=== PATIENT | female | born 1980 | race African-American/Black ===

== ENCOUNTER 2016-08-18 08:22 | Emergency (ER) | payer OTHER ==
[~2016-08-18] VITALS: Ht 157.5 cm; Wt 104.3 kg
[~2016-08-18 08:22] MED LIST: CIPRO500 MG PO; ENALAPRIL2.5 MG PO; HYDROCHLORTHIAZIDE PO; LASIX20 M1 PO; ZESTRIL10 MG PO; [UNRECOGNIZED DRUG - OTHER] PO
[2016-08-18 08:24] VITALS: BP 160/99
--- NOTE | 2016-08-18 08:32 | NUR ---
PT PRESENTS TO ER W/C/O CHEST PAIN SINCE 0500. HX HTN, HYPERLIPIDEMIA, CARDIOMYOPATHY. DENIES N/V/D; SKIN IS PINK/WARM/DRY; AAOX4 WITH EVEN AND STEADY GAIT; LUNGS CLEAR BL; HR EVEN AND REGULAR; PT DENIES ANY FEVER, SOB, OR COUGH AT THIS TIME; PATIENT STATES PAIN OF 10/10 AT THIS TIME; VSS; PATIENT POSITIONED FOR COMFORT; HOB ELEVATED; BEDRAILS UP X2; BED DOWN. ER MD MADE AWARE OF PT STATUS.
--- NOTE | 2016-08-18 08:55 | NUR ---
DR PRATHER ASSESSING THE PT AT BEDSIDE
[2016-08-18] MEDS ORDERED: NACL 0.9% 1,000 ML IV ONE (09:00)
[2016-08-18] MEDS ORDERED: ASPIRIN 81 MG TAB.CHEW PO ONE (09:00)
[2016-08-18] MEDS ORDERED: HYDROmorphone 1 MG/ML AMP IVP ONE ×2 (09:00→10:15)
--- NOTE | 2016-08-18 09:40 | NUR ---
[employer] AT BEDSIDE
--- NOTE | 2016-08-18 11:06 | NUR ---
2ND DILAUDID GIVEN AT 1020, PT RESTING/TAKING A NAP COMFORTABLY ON BED, VSS, NO DISTRESS OR C/O PAIN AT THIS TIME
--- NOTE | 2016-08-18 11:36 | NUR ---
AAO PT NO C/O PAIN AT THIS TIME, JUST LIGHTHEADED PER PT, GIVEN CUP OF WATER PER PT REQUEST, VSS, WILL CONTINUE TO MONITOR
--- NOTE | 2016-08-18 11:47 | NUR ---
DR PRATHER AT BEDSIDE UPDATING AAO PT FOR DISCHARGE INSTRUCTIONS
[2016-08-18 12:02] VITALS: BP 111/75
== END 2016-08-18 12:02 | disposition home or self-care (01) ==
LOC: MED 08:22
DX: R07.89 Other chest pain (principal); I10 Essential (primary) hypertension; I42.9 Cardiomyopathy, unspecified; E78.5 Hyperlipidemia, unspecified; Z88.0 Allergy status to penicillin; Z88.5 Allergy status to narcotic agent
CPT/HCPCS: 36415; 71010; 80053; 84484; 85025; 85610; 85730; 93005; 96361; 96374; 96376; 99285; J1170; J7030; Q0092

== ENCOUNTER 2018-07-12 21:09 | Emergency (ER) | payer OTHER ==
[~2018-07-12] VITALS: Ht 157.5 cm; Wt 93.0 kg
[~2018-07-12 21:09] MED LIST changes: +CIPR500T4 PO; -CIPRO500 MG PO; -ENALAPRIL2.5 MG PO; -HYDROCHLORTHIAZIDE PO; -LASIX20 M1 PO; +LISI10TA11 PO; -ZESTRIL10 MG PO; -[UNRECOGNIZED DRUG - OTHER] PO
[2018-07-12 21:17] VITALS: BP 157/117
--- NOTE | 2018-07-12 21:22 | NUR ---
PT TAKEN TO BED 2 Addendum: 07/12/18 at 2141 by ROSIE PT TAKEN TO BED 3
--- NOTE | 2018-07-12 21:35 | NUR ---
PATIENT PRESENTS TO ED WITH VAGINAL BLEEDING X9 DAYS. PT STATES LMP: 07/03/18 AND HAS NOT STOPPED BLEEDING, IS UNUSUAL FOR HER CYCLE AND SYCOPAL EPIDSODE TODAY WITNESSED BY HER DAUGHTER, LASTED LESS THAN 1 MIN. DENIES N/V/D; SKIN IS PINK/WARM/DRY; AAOX4 WITH EVEN AND STEADY GAIT; LUNGS CLEAR BL; HR EVEN AND REGULAR; PT DENIES ANY FEVER, CP, SOB, OR COUGH AT THIS TIME; PATIENT STATES PAIN OF 9/10 AT THIS TIME; VSS; PATIENT POSITIONED FOR COMFORT; HOB ELEVATED; BEDRAILS UP X2; BED DOWN. ER MD MADE AWARE OF PT STATUS. PMH: HTN, SCIATICA RX: NORCO
--- NOTE | 2018-07-12 21:44 | NUR ---
Dr. Eddy evaluating patient at bedside.
[2018-07-12] MEDS ORDERED: MORPHINE SULFATE 4 MG/ML SYR IM ONE (21:55)
[2018-07-12 22:09] LABS: APPEARANCE,URINE CLEAR (CLEAR); BILIRUBIN,URINE NEGATIVE (NEGATIVE); BLOOD, URINE 3+ (NEGATIVE); COLOR,URINE YELLOW (YELLOW); LEUKOCYTE ESTERASE ,URINE NEGATIVE (NEGATIVE); NITRITE, URINE NEGATIVE (NEGATIVE); UGLUCOSE NEGATIVE (NEGATIVE)
--- NOTE | 2018-07-12 22:13 | NUR ---
LAB AT BEDSIDE.
--- NOTE | 2018-07-12 22:22 | NUR ---
US AT BEDSIDE.
--- NOTE | 2018-07-12 22:22 | NUR ---
Ultrasound at bedside.
[2018-07-12 22:24] LABS: RBC,URINE 0-5 (RARE) /HPF (0-5); WBC,URINE 0-5 (RARE) /HPF (0-5)
[2018-07-12 22:28] LABS: BASOPHILS % (AUTO) 0.6 % (0.0-2.0); EOSINOPHILS % (AUTO) 0.5 % (0.0-4.0); HEMATOCRIT 35.1 % (36-48); HEMOGLOBIN 11.4 g/dL (12.0-16.0); LYMPHOCYTES # (AUTO) 2.4 K/uL (2.5-16.5); LYMPHOCYTES % (AUTO) 37.1 % (20.5-51.1); MEAN CORPUSCULAR HEMOGLOBIN 29 pg (27-31); MEAN CORPUSCULAR HGB CONC 32 g/dL (33-37); MEAN CORPUSCULAR VOLUME 89.2 fL (80-94); MONOCYTES # (AUTO) 0.4 K/uL (0.8-1.0); NEUTROPHILS # (AUTO) 3.6 K/uL (1.8-7.7); NEUTROPHILS % (AUTO) 55.8 % (42.2-75.2); PLATELET COUNT (AUTO) 312 K/uL (140-450); RED BLOOD CELL COUNT(AUTO) 3.93 MIL/uL (4.20-5.40); RED CELL DISTRIBUTION WIDTH 14.2 % (11.6-13.7); WHITE BLOOD COUNT (AUTO) 6.4 K/uL (4.8-10.8)
[2018-07-12 22:53] LABS: PROTHROMBIN TIME 9.3 secs (10.8-13.4)
[2018-07-12 23:11] LABS: ANION GAP 9.5 (8-16); CARBON DIOXIDE 28.1 mmol/L (21-32); POTASSIUM 3.6 mmol/L (3.5-5.1)
[2018-07-12 23:26] LABS: ALBUMIN 3.3 g/dL (3.4-5.0); FREE T4 (FREE THYROXINE) 0.95 ng/dL (0.76-1.46); THYROID STIMULATING HORMONE 1.22 uIU/mL (0.34-3.74); TOTAL BILIRUBIN 0.2 mg/dL (0.0-1.0)
--- NOTE | 2018-07-13 01:30 | NUR ---
Patient discharged with v/s stable. Written and verbal after care instructions given and explained. Patient alert, oriented and verbalized understanding of instructions. Ambulatory with steady gait. All questions addressed prior to discharge. ID band removed. Patient advised to follow up with PMD. Rx of Naprosyn, and [place] given. Patient educated on indication of medication including possible reaction and side effects. Opportunity to ask questions provided and answered.
[2018-07-13 01:58] VITALS: BP 108/84
== END 2018-07-13 01:30 | disposition home or self-care (01) ==
LOC: MED 21:09
DX: N83.201 Unspecified ovarian cyst, right side (principal); I10 Essential (primary) hypertension; Z79.899 Other long term (current) drug therapy; Z88.1 Allergy status to other antibiotic agents; Z88.5 Allergy status to narcotic agent; Z88.8 Allergy status to other drugs, medicaments and biological substances
CPT/HCPCS: 36415; 76830; 80053; 81001; 81025; 84439; 84443; 85025; 85610; 85730; 93005; 96372; 99284; J2270; Q0092

== ENCOUNTER 2018-07-21 19:02 | Emergency (ER) | payer OTHER ==
[~2018-07-21] VITALS: Ht 157.5 cm; Wt 98.9 kg
[2018-07-21 19:13] VITALS: BP 146/87
--- NOTE | 2018-07-21 19:43 | NUR ---
PT RETURN FROM [facility] TO [facility]
--- NOTE | 2018-07-21 20:22 | NUR ---
PT TAKEN TO BED 1
--- NOTE | 2018-07-21 20:44 | NUR ---
PT TO ED WITH C/O CHEST PAIN RADIATING TO LEFT BREAST. PT DENIES SOB. PT DENIES INJURY OR TRAUMA. CAP REFILL LESS THAN 3 SECS. NSR ON MONITOR. NO EDEMA OR SWELLING NOTED TO EXTREMITIES. PT ALSO REPORTING NAUSEA. BOWEL SOUNDS PRESENT. ABD IS SOFT NON TEDNER. PT PLACED INTO BED, ALL MONITORS PRESENT. PENDING MD ROCHA.
[2018-07-21] MEDS ORDERED: NACL 0.9% 1,000 ML IV ONE (20:59)
[2018-07-21] MEDS ORDERED: METOCLOPRAMIDE 10 MG/2 ML INJ VIAL IVP ONE (21:00)
[2018-07-21] MEDS ORDERED: diphenhydrAMINE 50 MG/ML VIAL IVP ONE (21:00)
--- NOTE | 2018-07-21 21:31 | NUR ---
PT SLEEPING AT THIS TIME. VSS. ON CONTINUOUS MONITORING. WILL CONTINUE TO MONITOR.
--- NOTE | 2018-07-21 23:04 | NUR ---
Patient discharged with v/s stable. Written and verbal after care instructions given and explained. Patient alert, oriented and verbalized understanding of instructions. Ambulatory with steady gait. All questions addressed prior to discharge. ID band removed. Patient advised to follow up with PMD. Rx of MOTRIN, ZOFRAN given. Patient educated on indication of medication including possible reaction and side effects. Opportunity to ask questions provided and answered.
[2018-07-21 23:05] VITALS: BP 138/91
== END 2018-07-21 23:04 | disposition home or self-care (01) ==
LOC: MED 19:02
DX: R07.89 Other chest pain (principal); R51 Headache; I10 Essential (primary) hypertension; Z90.49 Acquired absence of other specified parts of digestive tract; Z79.899 Other long term (current) drug therapy; Z88.6 Allergy status to analgesic agent; Z88.1 Allergy status to other antibiotic agents; Z88.5 Allergy status to narcotic agent
CPT/HCPCS: 71046; 81002; 93005; 96374; 96375; 99283; J1200; J2765; J7030

== ENCOUNTER 2018-08-15 17:41 | Emergency (ER) | payer OTHER ==
[~2018-08-15] VITALS: Ht 157.5 cm; Wt 100.5 kg
[2018-08-15 17:45] VITALS: BP 139/37
--- NOTE | 2018-08-15 18:44 | NUR ---
PATIENT AMBULATED TO BED 11
--- NOTE | 2018-08-15 18:45 | NUR ---
BIB SON. AAOX 4. C/O NECK PAIN, HEADACHE X 2 DAYS PT STATES 10/10 SHARP PAIN. MINIMAL MOVEMENT TO NECK. UNABLE TO LIFT UP LEFT ARM ABOVE SHOULDERS. EQUAL BILATERAL STRENGTH TO UPPER AND LOWER EXTREMITIES. PT HAS A MEDICAL HISTORY OF SCIATICA. PT TOOK FLEXERIL FOR MUSCLE RELAXANT. PT DENIES DIZZINESS. NO N/V/D. HOB UP. BED SIDE RAILS UP X1. ON LOW BED POSITION, LOCKED. ER MADE AWARE OF PT STATUS.
--- NOTE | 2018-08-15 19:11 | NUR ---
Pt report given to ULISES PIMENTEL AND ULISES NAJERA. Transfer of care at this time.
--- NOTE | 2018-08-15 19:13 | NUR ---
ASSUMED CARE OF PT FROM ULISES KERR
[2018-08-15 21:06] VITALS: BP 139/37
--- NOTE | 2018-08-15 21:08 | NUR ---
Patient discharged with v/s stable. Written and verbal after care instructions given and explained. Patient alert, oriented and verbalized understanding of instructions. Ambulatory with steady gait. All questions addressed prior to discharge. ID band removed. Patient advised to follow up with PMD. Rx of FLEXERIL,AND TRAMADOL given. Patient educated on indication of medication including possible reaction and side effects. Opportunity to ask questions provided and answered.
== END 2018-08-15 21:08 | disposition home or self-care (01) ==
LOC: MED 17:41
DX: M43.6 Torticollis (principal); I10 Essential (primary) hypertension; Z90.49 Acquired absence of other specified parts of digestive tract; Z79.899 Other long term (current) drug therapy; Z88.1 Allergy status to other antibiotic agents; Z88.5 Allergy status to narcotic agent
CPT/HCPCS: 72040; 99283

== ENCOUNTER 2018-09-29 14:34 | Emergency (ER) | payer OTHER ==
[~2018-09-29] VITALS: Ht 157.5 cm; Wt 99.8 kg
[2018-09-29 14:47] VITALS: BP 135/64
--- NOTE | 2018-09-29 15:00 | NUR ---
C/O LEFT TOE PAIN. 11/26 PAIN. PT REPORTS PREVIOUS INGROWN TOE NAIL THAT POSSIBLY GOT INFECTED. PATIENT POSITIONED FOR COMFORT; HOB ELEVATED; BEDRAILS UP X1; BED DOWN. ER MD MADE AWARE OF PT STATUS.
[2018-09-29 15:20] VITALS: BP 120/60
== END 2018-09-29 15:09 | disposition home or self-care (01) ==
LOC: MED 14:34
DX: L60.0 Ingrowing nail (principal); L08.9 Local infection of the skin and subcutaneous tissue, unspecified; I10 Essential (primary) hypertension; Z88.1 Allergy status to other antibiotic agents; Z88.5 Allergy status to narcotic agent; Z88.8 Allergy status to other drugs, medicaments and biological substances; Z79.899 Other long term (current) drug therapy
CPT/HCPCS: 99283

== ENCOUNTER 2019-04-13 02:52 | Emergency (ER) | payer OTHER ==
[~2019-04-13] VITALS: Ht 154.9 cm; Wt 104.3 kg
[2019-04-13 03:07] VITALS: BP 129/48
--- NOTE | 2019-04-13 03:30 | NUR ---
PT PRESENTS TO THE ED WITH C/O RIGHT KNEE PAIN X2DAYS. NON-PITTING EDEMA NOTED TO THE RIGHT LEG AND FOOT. PATIENT SENSITIVE TO TOUCH. SKIN IS INTACT WITH SCATTERED SCABS. PT DENIES TRAUMA TO THE THE LEG.
--- NOTE | 2019-04-13 03:34 | NUR ---
PT BEING EVALUATED BY DR FINNEGAN
[2019-04-13] MEDS ORDERED: MORPHINE SULFATE 4 MG/ML SYR IVP ONE (03:45)
[2019-04-13] MEDS ORDERED: LIDOCAINE MPF 1% 10 MG/ML VIAL INJ ONE (03:45)
[2019-04-13] MEDS ORDERED: cefTRIAXone 1,000 MG VIAL ONE (03:49)
[2019-04-13] MEDS ORDERED: ONDANSETRON 4 MG/2 ML VIAL ONE (04:13)
[2019-04-13] MEDS ORDERED: ONDANSETRON 4 MG/2 ML VIAL IVP ONE (04:15)
[2019-04-13] MEDS ORDERED: BACITRACIN OINT 500 UNITS/GM PKT TP ONE (04:30)
--- NOTE | 2019-04-13 04:42 | NUR ---
PT WOUND COVERED WITH NON ADHERENT DRESSING AND WRAPPED WITH ROLLER GAUZE AFTER BACITRACIN APPLIED.
[2019-04-13 05:18] VITALS: BP 127/91
--- NOTE | 2019-04-13 05:18 | NUR ---
PT DISCHARGED BY DR FINNEGAN
== END 2019-04-13 05:18 | disposition home or self-care (01) ==
LOC: MED 02:52
DX: L60.0 Ingrowing nail (principal); L03.115 Cellulitis of right lower limb; I10 Essential (primary) hypertension; Z79.899 Other long term (current) drug therapy; Z88.1 Allergy status to other antibiotic agents; Z88.5 Allergy status to narcotic agent; Z88.8 Allergy status to other drugs, medicaments and biological substances
CPT/HCPCS: 11730; 93971; 96365; 96375; 99284; J0696; J2001; J2270; J2405; Q0092

== ENCOUNTER 2019-05-03 23:19 | Emergency (ER) | payer OTHER ==
[~2019-05-03] VITALS: Ht 157.5 cm; Wt 104.3 kg
[2019-05-03 23:43] VITALS: BP 147/90
--- NOTE | 2019-05-03 23:45 | NUR ---
TO LOBBY A/W BED AMBULATORY
--- NOTE | 2019-05-03 23:58 | NUR ---
PT TAKEN TO BED 2
--- NOTE | 2019-05-04 00:10 | NUR ---
ASSESSMENT COMPLETED AT THIS TIME. PATIENT SITTING UP IN BED, BED IN LOW LOCKED POSTION, SIDE RAIL UP X1. NO NEEDS STATED AT THIS TIME.
[2019-05-04 02:00] VITALS: BP 141/87
--- NOTE | 2019-05-04 02:00 | NUR ---
PT DISCHARGED WITH PAPERWORK. EDUCATED PT REGARDING MEDICATIONS AND S/E. EDUCATED PT REGARDING D/C DIAGNOSIS AND INSTRUCTIONS. TOLD PT TO FOLLOW UP WITH PCP AND WHEN TO RETURN TO ED. PT STABLE CONDITION. ALL QUESTIONS ANSWERED.
== END 2019-05-04 02:00 | disposition home or self-care (01) ==
LOC: MED 23:19
DX: J20.9 Acute bronchitis, unspecified (principal); I10 Essential (primary) hypertension; Z98.890 Other specified postprocedural states; Z79.2 Long term (current) use of antibiotics; Z79.899 Other long term (current) drug therapy; Z88.6 Allergy status to analgesic agent; Z88.0 Allergy status to penicillin; Z88.5 Allergy status to narcotic agent
CPT/HCPCS: 71045; 87081; 99284; Q0092

== ENCOUNTER 2019-06-07 17:34 | Emergency (ER) | payer OTHER ==
[~2019-06-07] VITALS: Ht 157.5 cm; Wt 104.3 kg
--- NOTE | 2019-06-07 17:44 | NUR ---
PT IN WHEELCHAIR TO ER BED 06
[2019-06-07 17:45] VITALS: BP 133/96
--- NOTE | 2019-06-07 18:02 | NUR ---
39 Y/O F C/O COUGH, CONGESTION, CHEST TIGHTNESS X 2 DAYS WITH PAIN 6/10 WHEN COUGHING. PT HAS NAUSEA, NO FEVER. PT LUNG SOUNDS CLEAR THROUGHOUT, OXYGEN LEVEL 100%. PT ON MONITOR, VSS, PT POSITIONED HIGH FOWLERS, AT BEDSIDE.
[2019-06-07] MEDS ORDERED: ALBUTEROL 0.083% 2.5 MG/3 ML NEBU INH ONE (18:15)
[2019-06-07 18:41] LABS: BASOPHILS # (AUTO) 0.1 K/uL (0.00-0.22); EOSINOPHILS # (AUTO) 0.1 K/uL (0-0.4); EOSINOPHILS % (AUTO) 1.6 % (0.0-4.0); HEMATOCRIT 33.4 % (36-48); HEMOGLOBIN 10.8 g/dL (12.0-16.0); LYMPHOCYTES # (AUTO) 1.9 K/uL (2.5-16.5); LYMPHOCYTES % (AUTO) 33.2 % (20.5-51.1); MEAN CORPUSCULAR HEMOGLOBIN 28 pg (27-31); MEAN CORPUSCULAR HGB CONC 32 g/dL (33-37); MEAN CORPUSCULAR VOLUME 85.2 fL (80-94); MONOCYTES # (AUTO) 0.4 K/uL (0.8-1.0); MONOCYTES % (AUTO) 7.6 % (1.7-9.3); NEUTROPHILS # (AUTO) 3.3 K/uL (1.8-7.7); NEUTROPHILS % (AUTO) 56.6 % (42.2-75.2); PLATELET COUNT (AUTO) 350 K/uL (140-450); RED BLOOD CELL COUNT(AUTO) 3.92 MIL/uL (4.20-5.40); WHITE BLOOD COUNT (AUTO) 5.8 K/uL (4.8-10.8)
[2019-06-07 18:58] LABS: ALBUMIN 3.2 g/dL (3.4-5.0); ANION GAP 11.8 (8-16); CARBON DIOXIDE 28.5 mmol/L (21-32); CREATININE 0.7 mg/dL (0.6-1.3); POTASSIUM 3.3 mmol/L (3.5-5.1); TOTAL BILIRUBIN 0.2 mg/dL (0.0-1.0)
--- NOTE | 2019-06-07 18:59 | NUR ---
PT STATES SHE FEELS BETTER AFTER BREATHING TREATMENT. AT BEDSIDE.
[2019-06-07 19:01] LABS: PROTHROMBIN TIME 9.3 secs (10.8-13.4)
[2019-06-07 19:02] VITALS: BP 119/80
--- NOTE | 2019-06-07 19:10 | NUR ---
REPORT GIVEN TO ULISES CHANG FOR CHANGE OF SHIFT.
--- NOTE | 2019-06-07 19:11 | NUR ---
REPORT RECEIVED FROM ULISES FRAZIER. ASSUMED CARE AT THIS TIME
--- NOTE | 2019-06-07 20:21 | NUR ---
Patient discharged with v/s stable. Written and verbal after care instructions given and explained. Patient verbalized understanding. Wheel Chair Assisted with by SON. All questions addressed prior to discharge. Advised to follow up with PMD.
== END 2019-06-07 20:21 | disposition home or self-care (01) ==
LOC: MED 17:34
DX: R60.0 Localized edema (principal); I10 Essential (primary) hypertension; R07.89 Other chest pain; R06.02 Shortness of breath; Z79.899 Other long term (current) drug therapy; Z88.1 Allergy status to other antibiotic agents; Z88.5 Allergy status to narcotic agent
CPT/HCPCS: 36415; 71045; 80053; 83880; 84484; 85025; 85610; 85730; 93005; 94640; 99284; J7613; Q0092

== ENCOUNTER 2020-08-25 07:17 | Emergency (ER) | payer OTHER ==
[~2020-08-25] VITALS: Ht 157.5 cm; Wt 93.0 kg
[~2020-08-25 07:17] MED LIST changes: +LISI-486 PO; -LISI10TA11 PO
[2020-08-25 07:22] VITALS: BP 142/71
[2020-08-25] MEDS ORDERED: MORPHINE SULFATE 4 MG/ML SYR IVP ONE (07:45)
[2020-08-25] MEDS ORDERED: METOCLOPRAMIDE 10 MG/2 ML INJ VIAL IVP ONE (07:45)
[2020-08-25 08:04] LABS: BASOPHILS # (AUTO) 0.1 K/uL (0.00-0.22); BASOPHILS % (AUTO) 1.6 % (0.0-2.0); EOSINOPHILS # (AUTO) 0.1 K/uL (0-0.4); EOSINOPHILS % (AUTO) 2.2 % (0.0-4.0); HEMATOCRIT 33.6 % (36-48); LYMPHOCYTES # (AUTO) 1.5 K/uL (2.5-16.5); LYMPHOCYTES % (AUTO) 29.1 % (20.5-51.1); MEAN CORPUSCULAR HEMOGLOBIN 28 pg (27-31); MEAN CORPUSCULAR HGB CONC 33 g/dL (33-37); MEAN CORPUSCULAR VOLUME 85.3 fL (80-94); MONOCYTES # (AUTO) 0.4 K/uL (0.8-1.0); MONOCYTES % (AUTO) 8.6 % (1.7-9.3); NEUTROPHILS # (AUTO) 3.1 K/uL (1.8-7.7); NEUTROPHILS % (AUTO) 58.5 % (42.2-75.2); PLATELET COUNT (AUTO) 240 K/uL (140-450); RED BLOOD CELL COUNT(AUTO) 3.93 MIL/uL (4.20-5.40); RED CELL DISTRIBUTION WIDTH 15.7 % (11.6-13.7); WHITE BLOOD COUNT (AUTO) 5.2 K/uL (4.8-10.8)
[2020-08-25 08:21] LABS: ALBUMIN 3.1 g/dL (3.4-5.0); ANION GAP 10.9 (8-16); CARBON DIOXIDE 28.5 mmol/L (21-32); CREATININE 0.8 mg/dL (0.6-1.3); POTASSIUM 3.4 mmol/L (3.5-5.1); TOTAL BILIRUBIN 0.3 mg/dL (0.0-1.0)
[2020-08-25 08:32] LABS: LIPASE 145 U/L (73-393)
[2020-08-25] MEDS ORDERED: ACETAMINOPHEN EXTRA STRENGTH 500 MG TAB PO ONE (08:50)
[2020-08-25] MEDS ORDERED: KETOROLAC 15 MG/ML VIAL IVP ONE (09:30)
[2020-08-25] MEDS ORDERED: HYDROcodone/APAP 5/325 MG 1 TAB TAB PO ONE (12:50)
[2020-08-25 13:07] VITALS: BP 136/81
== END 2020-08-25 13:07 | disposition designated cancer center or children's hospital (05) ==
LOC: MED 07:17
DX: I63.9 Cerebral infarction, unspecified (principal); Z20.822 Contact with and (suspected) exposure to COVID-19; I10 Essential (primary) hypertension; Z79.899 Other long term (current) drug therapy; Z88.1 Allergy status to other antibiotic agents; Z88.8 Allergy status to other drugs, medicaments and biological substances; Z88.5 Allergy status to narcotic agent
CPT/HCPCS: 70450; 71045; 80053; 82550; 82553; 83690; 83880; 84484; 85025; 87426; 93005; 96374; 96375; 99285; J1885; J2270; J2765; U0003

== ENCOUNTER 2020-12-13 04:55 | Emergency (ER) | payer OTHER ==
[~2020-12-13] VITALS: Ht 157.5 cm; Wt 83.9 kg
[2020-12-13 05:00] VITALS: BP 155/82
--- NOTE | 2020-12-13 05:00 | NUR ---
TO BED AMBULATORY
--- NOTE | 2020-12-13 05:10 | NUR ---
S/p fall last saturday in the shower. patient experiencing extreme pain after it. patient c/o pain 10/10 pain in the lower bag that radiates to the left leg. pain is also present in the left ribs and bilateral knees since patient fell on the left side. patient denies losing consciousness when patient fell. patient c/o swelling knees. patient took robaxin, gabapentin, and dilaudid around 7p-8p last night. AAOX4. VSS. pmh: anxiety, depression, lamectomy, gallbladder removal, htn, dm allx: toradol, amoxicillin, codeine
[2020-12-13] MEDS ORDERED: MORPHINE SULFATE 4 MG/ML SYR IM ONE (06:25)
--- NOTE | 2020-12-13 07:20 | NUR ---
Pt report given to ULISES Garcia & ULISES Khan. Transfer of care at this time.
--- NOTE | 2020-12-13 07:21 | NUR ---
REPORT RECIEVED FROM ULISES DICKSON. TRANSFER OF CARE RECEIVED
--- NOTE | 2020-12-13 08:20 | NUR ---
pt provided ice chips bedside
--- NOTE | 2020-12-13 08:36 | NUR ---
Dr. Mejia is evaluating the patient at bedside.
[2020-12-13] MEDS ORDERED: fentaNYL citrate 0.05 MG/ML VIAL IM ONE (08:40)
--- NOTE | 2020-12-13 09:03 | NUR ---
PT PROVIDED CRACKERS BEDSIDE.
[2020-12-13 09:19] VITALS: BP 123/82
== END 2020-12-13 09:14 | disposition home or self-care (01) ==
LOC: MED 04:55
DX: S13.4XXA Sprain of ligaments of cervical spine, initial encounter (principal); S20.212A Contusion of left front wall of thorax, initial encounter; M25.561 Pain in right knee; M25.562 Pain in left knee; I10 Essential (primary) hypertension; E11.9 Type 2 diabetes mellitus without complications; Z88.1 Allergy status to other antibiotic agents; Z88.5 Allergy status to narcotic agent; Z88.8 Allergy status to other drugs, medicaments and biological substances; X58.XXXA Exposure to other specified factors, initial encounter; Y93.89 Activity, other specified; Y92.89 Other specified places as the place of occurrence of the external cause; Y99.8 Other external cause status
CPT/HCPCS: 71101; 72040; 73562; 96372; 99284; J2270; J3010

== ENCOUNTER 2021-12-06 15:54 | Emergency (ER) | payer OTHER ==
[~2021-12-06] VITALS: Ht 157.5 cm; Wt 90.7 kg
[2021-12-06 16:05] VITALS: BP 172/119
--- NOTE | 2021-12-06 16:08 | NUR ---
PATIENT W/C ASSISTED TO BED 12.
[2021-12-06] MEDS ORDERED: NITROGLYCERIN 0.4 MG TAB SL ONE (16:30)
[2021-12-06] MEDS ORDERED: ACETAMINOPHEN EXTRA STRENGTH 500 MG TAB PO ONE (16:30)
[2021-12-06] MEDS ORDERED: diazePAM 5 MG TAB PO ONE (16:35)
--- NOTE | 2021-12-06 16:35 | NUR ---
lab at bedside
[2021-12-06] MEDS ORDERED: CRUSHER, PILL MC ONE (16:38)
--- NOTE | 2021-12-06 16:40 | NUR ---
41 y/o female c/o sudden non-radiating chest pain + sob. Rating 10/10 described as "crushing pressure". Has not experienced this pain before, did not take any medication. Denies fever, chills, nvd. Respirations even and unlabored. Skin warm, dry, and intact.
[2021-12-06 16:44] LABS: BASOPHILS % (AUTO) 1.1 % (0.0-2.0); EOSINOPHILS % (AUTO) 0.9 % (0.0-4.0); HEMATOCRIT 34.9 % (36-48); HEMOGLOBIN 11.5 g/dL (12.0-16.0); LYMPHOCYTES # (AUTO) 1.7 K/uL (2.5-16.5); LYMPHOCYTES % (AUTO) 42.2 % (20.5-51.1); MEAN CORPUSCULAR HEMOGLOBIN 28 pg (27-31); MEAN CORPUSCULAR HGB CONC 33 g/dL (33-37); MEAN CORPUSCULAR VOLUME 84.3 fL (80-94); MONOCYTES # (AUTO) 0.3 K/uL (0.8-1.0); MONOCYTES % (AUTO) 7.1 % (1.7-9.3); NEUTROPHILS # (AUTO) 1.9 K/uL (1.8-7.7); NEUTROPHILS % (AUTO) 48.7 % (42.2-75.2); PLATELET COUNT (AUTO) 300 K/uL (140-450); RED BLOOD CELL COUNT(AUTO) 4.14 MIL/uL (4.20-5.40); RED CELL DISTRIBUTION WIDTH 16.4 % (11.6-13.7)
--- NOTE | 2021-12-06 16:45 | NUR ---
Pt unable to provide urine sample at this time. Offered fluids and accepted.
--- NOTE | 2021-12-06 16:47 | NUR ---
1 DOSE NITROGLYCERIN GIVEN, PT REPORTS RELIEF OF "CHEST PRESSURE".
[2021-12-06 16:56] LABS: ALBUMIN 3.2 g/dL (3.4-5.0); ANION GAP 12.9 (8-16); CARBON DIOXIDE 26.7 mmol/L (21-32); CREATININE 0.9 mg/dL (0.6-1.3); POTASSIUM 3.6 mmol/L (3.5-5.1); TOTAL BILIRUBIN 0.2 mg/dL (0.0-1.0)
--- NOTE | 2021-12-06 18:57 | NUR ---
pt unable to provide urine sample at this time.
--- NOTE | 2021-12-06 19:00 | NUR ---
Lab at bedside
[2021-12-06] MEDS ORDERED: CYCLOBENZAPRINE 10 MG TAB PO ONE (19:05)
--- NOTE | 2021-12-06 19:05 | NUR ---
pt reporting headache and new onset of pain to left breast. Md made aware
--- NOTE | 2021-12-06 19:23 | NUR ---
Pt report given to Teresa. Transfer of care at this time.
[2021-12-06] MEDS ORDERED: CYCLOBENZAPRINE 10 MG TAB ONE (19:25)
--- NOTE | 2021-12-06 19:29 | NUR ---
NITHIN REFUSED CYCLOBENZAPRINE HYDROCHLORIDE AND STATED "THAT AINT GOING TO HELP. IF THATS THE CASE I WOULD LIKE TO JUST GET MY LAB RESULTS AND GO HOME." MADE AWARE.
--- NOTE | 2021-12-06 19:31 | NUR ---
Patient being evaluated by physician at bedside.
[2021-12-06 19:36] VITALS: BP 144/100
--- NOTE | 2021-12-06 19:36 | NUR ---
Patient discharged with v/s stable. Written and verbal after care instructions given and explained. Patient verbalized understanding. Ambulatory with steady gait. All questions addressed prior to discharge. Advised to follow up with PMD.
== END 2021-12-06 19:36 | disposition home or self-care (01) ==
LOC: MED 15:54
DX: R07.89 Other chest pain (principal); E11.9 Type 2 diabetes mellitus without complications; I10 Essential (primary) hypertension; Z88.1 Allergy status to other antibiotic agents; Z88.5 Allergy status to narcotic agent; Z88.8 Allergy status to other drugs, medicaments and biological substances; Z98.890 Other specified postprocedural states
CPT/HCPCS: 36415; 71045; 80053; 83880; 84484; 85025; 93005; 99285

== ENCOUNTER 2022-01-19 10:53 | Emergency (ER) | payer OTHER ==
[~2022-01-19] VITALS: Ht 157.5 cm; Wt 90.3 kg
[2022-01-19 11:01] VITALS: BP 134/93
--- NOTE | 2022-01-19 11:12 | NUR ---
taken to bed 2 via w/c
--- NOTE | 2022-01-19 11:30 | NUR ---
42YO FEMALE PT C/O SHARP 02/26 R LEG PAIN XYESTERDAY. PT STATES CHRONIC PAIN X1YEAR W/ UNKNOWN DX. R LEG PRESENTS WITH +1 SWELLING FROM THIGH DOWN TO FOOT. LEG TENDER TO TOUCH, CAP REFILL <3 THROUGHOUT EXTREMITY. PT AMBULATORY USING CANE , UNABLE TO AMBULATE AT THIS TIME DUE TO PAIN. STATES HAVING LEG " DRAINED " X3 W/O IMPROVEMENT. DENIES RELIEF, AFTER TAKING RX FLEXERIL AND VICODIN. DENIES N/V/D, FEVER, CHILLS , CHEST PAIN OR SOB. NOTES OCCASIONAL NUMBING IN R TOES, DENIES LOSS OF SENSATION. PT AAOX4, NO VISIBLE DISTRESS, RESPIRATIONS EVEN AND UNLABORED. HX: HTN, HLD NKA: AMOXICILLIN, CODEINE, TORADOL
--- NOTE | 2022-01-19 12:11 | NUR ---
JAMAAL MAE AT BEDSIDE FOR EVALUATION
[2022-01-19] MEDS ORDERED: fentaNYL citrate 0.05 MG/ML VIAL IM ONE (12:25)
--- NOTE | 2022-01-19 12:47 | NUR ---
US AT BEDSIDE
--- NOTE | 2022-01-19 14:11 | NUR ---
ori wrap x 1 to r knee. + cms
[2022-01-19 14:45] VITALS: BP 114/88
--- NOTE | 2022-01-19 14:45 | NUR ---
Patient discharged with v/s stable. Written and verbal after care instructions given and explained. Patient alert, oriented and verbalized understanding of instructions. Wheel Chair Assisted with to car. All questions addressed prior to discharge. ID band removed. Patient advised to follow up with PMD. NO Rx given. Patient educated on indication of medication including possible reaction and side effects. Opportunity to ask questions provided and answered.
== END 2022-01-19 14:45 | disposition home or self-care (01) ==
LOC: MED 10:53
DX: M25.461 Effusion, right knee (principal); G89.29 Other chronic pain; E11.9 Type 2 diabetes mellitus without complications; I10 Essential (primary) hypertension; Z88.1 Allergy status to other antibiotic agents; Z88.5 Allergy status to narcotic agent; Z88.8 Allergy status to other drugs, medicaments and biological substances
CPT/HCPCS: 93971; 96372; 99284; J3010; Q0092

== ENCOUNTER 2022-09-07 08:50 | Emergency (ER) | payer OTHER ==
[~2022-09-07] VITALS: Ht 157.5 cm; Wt 90.7 kg
[2022-09-07 08:52] VITALS: BP 145/90
--- NOTE | 2022-09-07 10:15 | NUR ---
PATIENT ELOPED FROM FACILITY. DISCHARGE INSTRUCTIONS NOT GIVEN TO PATIENT. DR. ROSA OBRIEN. / CARMELITA HINTON NOTIFIED.
== END 2022-09-07 10:15 | disposition left against medical advice (07) ==
LOC: MED 08:50
DX: M79.661 Pain in right lower leg (principal); I10 Essential (primary) hypertension; E11.9 Type 2 diabetes mellitus without complications; Z88.1 Allergy status to other antibiotic agents; Z88.5 Allergy status to narcotic agent; Z79.1 Long term (current) use of non-steroidal anti-inflammatories (NSAID); Z79.4 Long term (current) use of insulin; Z79.899 Other long term (current) drug therapy; W57.XXXA Bitten or stung by nonvenomous insect and other nonvenomous arthropods, initial encounter; Y93.89 Activity, other specified; Y92.89 Other specified places as the place of occurrence of the external cause; Y99.8 Other external cause status
CPT/HCPCS: 99281

== ENCOUNTER 2023-07-12 14:43 | Emergency (ER) | payer OTHER ==
[~2023-07-12] VITALS: Ht 154.9 cm; Wt 93.0 kg
[2023-07-12 14:55] VITALS: BP 133/91; PULSE 75; RESP 18; TEMP 98.2; O2SAT 99
[2023-07-12] MEDS: HYDROcodone/APAP 7.5/325 MG 1 TAB PO ONE (15:42)
[2023-07-12] MEDS ORDERED: ACET-8905 PO (17:29)
[2023-07-12] MEDS: MORPHINE SULFATE 4 MG/ML SYR IM ONE (17:40)
== END 2023-07-12 17:59 | disposition home or self-care (01) ==
LOC: MED 14:43
DX: M25.512 Pain in left shoulder (principal); M25.522 Pain in left elbow; M54.50 Low back pain, unspecified; E11.9 Type 2 diabetes mellitus without complications; I10 Essential (primary) hypertension; Z79.899 Other long term (current) drug therapy; Z88.0 Allergy status to penicillin; Z88.5 Allergy status to narcotic agent; Z88.6 Allergy status to analgesic agent
CPT/HCPCS: 72220; 73030; 73070; 96372; 99284; J2270